=== PATIENT | female | born 1965 | race Caucasian/White ===

== ENCOUNTER 2022-11-09 15:14 | Inpatient (IN) ==
[2022-11-09] MEDS ORDERED: diphenhydrAMINE 50 MG/ML VIAL IV STA (15:23)
[2022-11-09] MEDS ORDERED: ALBUT/IPRATROP 3MG/0.5MG NEB 3 ML VIAL NEB STA ×3 (15:23→16:35)
[2022-11-09] MEDS ORDERED: LORazepam 2 MG/1 ML VIAL IV STA (15:23)
[2022-11-09] MEDS ORDERED: methylPREDNISolone 125 MG/2 ML VIAL IV STA (15:23)
[2022-11-09] MEDS ORDERED: ALBUT/IPRATROP 3MG/0.5MG NEB 3 ML VIAL ONE (15:25)
[2022-11-09 16:09] LABS: HCO3 VBG 29 mmol/L; Oxygen Saturation VBG < 60.0 %; PCO2 VBG 45 mmHg (38-50); PO2 VBG 26 mmHg; pH VBG 7.42 (7.36-7.41)
--- NOTE | 2022-11-09 16:17 | Electrocardiogram Report ---
Test Reason : Blood Pressure : / mmHG Vent. Rate : 100 BPM Atrial Rate : 100 BPM P-R Int : 170 ms QRS Dur : 090 ms QT Int : 366 ms P-R-T Axes : 030 024 029 degrees QTc Int : 472 ms Normal sinus rhythm Normal ECG When compared with ECG of 22-NOV-2005 22:27, OH interval has decreased Confirmed by Soham Teague ([id number]) on 11/09/2022 4:17:12 PM Referred By: Confirmed By:Soham Teague
[2022-11-09 16:18] LABS: Basophils # (auto) 0.05 K/uL (0-0.2); Basophils % (auto) 0.4 %; Eosinophils # (auto) 0.08 K/uL (0-0.50); Eosinophils % (auto) 0.6 %; Hematocrit (blood only) 45.5 % (37.0-47.0); Hemoglobin 15.5 g/dl (12.0-16.0); Immature Granulocytes # (auto) 0.03 K/uL (0.01-0.20); Immature Granulocytes % (auto) 0.2 %; Lymphocytes # (auto) 3.01 K/uL (1.2-3.4); Lymphocytes % (auto) 23.5 %; Mean Corpuscular Hemoglobin 31.3 pg (25.0-34.0); Mean Corpuscular Hgb Conc 34.1 g/dL (32.0-36.0); Mean Corpuscular Volume 91.7 fL (80.0-100.0); Mean Platelet Volume 8.9 fL (9.4-12.4); Monocytes # (auto) 0.73 K/uL (0.11-0.59); Monocytes % (auto) 5.7 %; Neutrophils # (auto) 8.92 K/uL (1.40-6.50); Neutrophils % (auto) 69.6 %; Platelet Count 366 K/uL (130-400); RDW Coefficient of Variation 12.7 % (11.5-14.5); RDW Standard Deviation 42.6 fL (36.4-46.3); Red Blood Count 4.96 M/uL (4.20-5.40); White Blood Count 12.82 K/ul (4.8-10.8)
[2022-11-09 16:21] LABS: Anion Gap 8 (3-11); BUN Creatinine Ratio 16.1 (10-20); Blood Urea Nitrogen 10 mg/dl (6-23); Calcium 9.6 mg/dl (8.6-10.3); Carbon Dioxide 25 mmol/L (21-32); Chloride 106 mmol/L (98-107); Est GFR (African American) 116.8 ml/min; Est GFR (Non-African American) 100.8 ml/min; Glucose 99 mg/dl (70-99(Fasting)); Potassium 3.6 mmol/L (3.5-5.1); Sodium 139 mmol/L (136-145)
[2022-11-09 16:29] LABS: Troponin I High Sensitivity 6.3 pg/ml (0-14)
[2022-11-09 16:38] LABS: D Dimer 330 ug/L FEU (0-500); Partial Thromboplastin Ratio 0.9; Partial Thromboplastin Time 26.2 Seconds (21.0-31.0); Prothrombin Time 10.6 Seconds (9.0-12.0)
[2022-11-09 16:46] LABS: Influenza A virus by PCR Negative (Neg); Influenza B virus by PCR Negative (Neg); RSV by PCR Negative (Neg); SARS CoV2 RNA(COVID-19) Ceph NEGATIVE (Negative)
--- NOTE | 2022-11-09 16:46 | XRay Report ---
XR chest 1V portable HISTORY: Shortness of breath. COMPARISON: Chest 11/22/2005. FINDINGS: There are low lung volumes. The cardiac silhouette is borderline enlarged. This remains unc hanged. No evidence for pulmonary edema. No pleural effusions. No pneumothorax. There are faint patch y bibasilar densities. The upper lung zones remain clear. IMPRESSION: There are low lung volumes with patchy bibasilar densities. This is nonspecific and could represent a telectasis or a pneumonia. ACT 112: Negative or not required by law. Electronically signed by: Fabian Hunt M.D. 11/09/2022 4:45 PM
--- NOTE | 2022-11-09 17:22 | History & Physical Report ---
Date of Service November 09, 2022 Assessment & Plan (1) Dysphagia: Plan: Dysphagia,? Odontogenic infection -Patient reports she had lower molar extractions on the and of this month, was prescribed amoxicillin which she completed a 10-day course of earlier in the month, but on reassessment the was prescribed additional antibiotics which she has not taken. Notes over the last 2 days she has had right jaw and neck tenderness and swelling, and has had difficulty swallowing over the last 2 days Dental extraction sites appear well-healed with no obvious purulence or discharge or erythema on exam. Does have right-sided fullness underlying the mandible and neck on exam. -Has felt feverish with severe chills for last 2 nights. Mild leukocytosis of 12.82 on admission -EKG: NSR, QTc 472, rate 100. No territorial ST segment changes or T wave inversions -VB.42/45/26/29 -No electrolyte derangement. Creatinine is with normal baseline and 0.62 on admission. COVID/flu/RSV negative on admission. High-sensitivity troponin is normal -CXR: Low volume with patchy bibasilar densities, nonspecific. Atelectasis versus pneumonia CTsoft tissue neck:1. There is evidence of a right mandibular molar extraction. Overlying soft tissue edema may represent expected postoperative change. Correlate clinically. 2. No organized fluid collection is seen to suggest abscess.3. The pharyngeal soft tissues are normal as imaged noting intraluminal secretions.4. Additional findings as above. Empirically continued on Unasyn at time of admission N.p.o. swallow eval. Maintenance IV FM while these are pending ?allergic reaction Patient initially presented concerned for difficulty swallowing/breathing due to an insect bite of her left lower extremity last night. She notes that this was over 12 hours ago, does not have any swelling or pain at the insect bite. Did not have any urticaria. No angioedema is noted at time of assessment Patient did complete a course of amoxicillin earlier in the month, and reports she takes medications rarely but is not allergic to penicillin as far as she knows and has gotten this before without reactions Patient does have severe seasonal allergies and gets watery eyes and itching with pollen. Cetirizine 10 mg twice daily continued, can transition to daily on D/C if doing well Patient received methylprednisolone and diphenhydramine while in ER, methylprednisolone is continued Low suspicion for penicillin allergy, and no hives/cutaneous symptoms are present. We will continue to follow, epinephrine is on-call if patient shows symptoms of anaphylaxis Acute hypoxic respiratory failure, suspected acute COPD - w/ emphysema noted on CT Patient reportedly with wheezing on admission and a long history of tobacco use. No PFTs available for review. No home inhalers Wheezing improved following steroids and nebs while in the ER We will continue methylprednisolone 40 mg twice daily. Recommend outpatient PFTs once at respiratory baseline. Abx covered by unasyn No home oxygen requirement, currently with adequate O2 sat on 2 L. Titrate to goal O2 of greater than 89% Magnesium pending DVT prophylaxis: Lovenox Diet: N.p.o. pending improvement in dysphagia. IV FM Disposition: PCU for airway/allergic rxn monitoring. Downgrade if stable through morning CODE STATUS: Full code (2) Wheezing: (3) Tobacco use: (4) H/O tooth extraction: History of Present Illness Primary Care Provider: NO PCP Flory is a 57-year-old female with a history of COPD who presents for a COPD exacerbation. Initially she was concerned about an anaphylactic reaction after getting stung by a bee last night, did not notice any shortness of breath until this morning. On ER evaluation she is noted to have increased wheezing in the setting of ongoing tobacco use. Initially due to concerns for potential allergic reaction did receive methylprednisolone, diphenhydramine however on reassessment was suspected to have COPD and therefore was continued on albuterol treatments with clinical improvement Pt is seen at the bedside while in the ER. She reports that initially she is concerned about a bee sting, she notes that she got an insect bite or sting on her left lower leg last night. She reports this morning she woke up and was having increased difficulty swallowing even water and some wheezing. She reports she feels like she has had difficulty breathing. She recently had dental work performed in [place], reports that she had teeth pulled by dr. lennox mabry on the and . Prescribed amoxicillin post procedurally and completed around 10 days of this earlier in the month, but was prescribed additional antibiotics on reassessment on the which she has not taken in addition to her difficulty breathing she has had 2 days of shaking chills fatigue and dizziness. R neck has felt more swollen, and she reports she has not been able to swallow well x2 days. Reports the chills have been particularly bad and has had to have multiple blankets on her at night and is still cold. She reports she does not have a history of COPD, but does not follow with a PCP and has been a longtime smoker. She denies medication allergies. She denies prior anaphylaxis. She denies prior surgeries other than her dental extraction. EKG: NSR, QTc 472, rate 100. No territorial ST segment changes or T wave inversions Leukocytosis of 12.82 without immature granulocyte increase VB.4 / No electrolyte derangement. Creatinine is with normal baseline and 0.62 on admission. COVID/flu/RSV negative on admission. High-sensitivity troponin is normal CXR: Low volume with patchy bibasilar densities, nonspecific. Atelectasis versus pneumonia Medical History: Reviewed Medications: Reviewed Surgical History: Reviewed Family history: Reviewed Allergies: Reviewed Social History: Current tobacco use. Denies alcohol and substance Code Status: Full code Allergies Allergy/AdvReac Type Severity Reaction Status Date / Time No Known Allergies Allergy Verified 07/26/02 14:51 Home Medications Medication Instructions Recorded Confirmed Type amoxicillin 500 mg capsule 500 mg PO TID 11/09/22 11/09/22 History Past Med/Surg History Medical History COPD (chronic obstructive pulmonary disease) No pertinent family history Tobacco use Surgical History (Updated 11/09/22 @ 17:38 by Epi Roberts MD) H/O tooth extraction Social History Smoking Status: Current every day smoker Feels Safe at Home: Yes Review of Systems Review of Systems: All systems reviewed & are unremarkable except as noted in HPI & below Physical Exam Physical Exam: General: A&Ox3. NAD. Cooperative. HEENT: Atraumatic, normocephalic. Vision/hearing grossly intact. Mallampati 34 with difficult uvular visualization, using tongue depressor uvula is midline at time of assessment. No angioedema of the lips/tongue. Right and left extracted molars with gums well-healed overlying without erythema/purulent discharge. Patient is tender underlying the right mandible and right anterior neck with mild swelling compared to the left Pulm: Diminished but grossly clear and without any wheezing at time of hospitalist assessment symmetrical chest rise. No increased work of breathing. No respiratory distress. Cardiac: Regular, tachycardic, -mrg. Radial pulses intact and symmetrical. Abdominal: Nontender, nondistended, soft. BS present. Extremities: Warm, dry. 1 cm round area of slight erythema at site of insect bite on left lateral lower extremity, no spreading erythema. No tenderness/itching of lower extremities. No urticaria of the upper or lower extremities is noted. Sensation and strength of the upper and lower extremities is grossly intact Results & Data Results & Data Vital Signs (Past 12 Hours) Vital Signs Temp Pulse Pulse Resp BP BP Pulse Ox 11/09/22 16:28 93 H 17 161/82 H 94 11/09/22 16:27 94 H 87 L 11/09/22 15:43 98 H 11/09/22 15:39 95 H 22 94 11/09/22 15:38 95 H 22 118/92 93 11/09/22 15:16 36.5 C 111 H 28 H 150/110 H 94 O2 Del Method O2 Flow Rate 11/09/22 16:28 Nasal Cannula 2 11/09/22 16:27 Room Air 11/09/22 15:43 11/09/22 15:39 Nasal Cannula 2 11/09/22 15:38 Room Air 11/09/22 15:16 Room Air PG Care Time/CCT Total # of Minutes Spent Total Time Spent with Patient: Total time spent is greater than 50% in coordination of care (as documented) at patient's floor/unit and/or counseling patient: Coding Level of Care Code 03657 INT INP/OBS CARE 3/75MIN Diagnoses Dysphagia R13.10 Wheezing R06.2 Tobacco use Z72.0 H/O tooth extraction K08.409
[2022-11-09] MEDS ORDERED: OPTIRAY 320 100ml IV ONE (18:07)
--- NOTE | 2022-11-09 18:59 | CT Scan Report ---
CT SCAN OF THE NECK WITH IV CONTRAST CLINICAL HISTORY: Neck pain and swelling following a dental extraction. COMPARISON STUDY: No priors. TECHNIQUE: Following the IV administration of 78 cc of Optiray 320, CT scan of the soft tissues of th e neck was performed from the skull base to the upper chest. Images are reviewed in the axial, sagitt al, and coronal planes. IV contrast was administered without complication. A dose lowering techniqu e was utilized adhering to the principles of ALARA. FINDINGS: Dentition and soft tissues. There is evidence of a right maxillary molar extraction. Overlying soft t issue edema is noted. No fluid collection is seen to suggest abscess. There is a small periapical laura ency involving the left central incisor of the maxilla seen on axial image #93. Pharynx: Secretions are noted in the pharynx. The pharyngeal soft tissues are otherwise normal as hiwot ged. The pharyngeal airway is widely patent. There is no evidence of mass lesion. The vocal cords are symmetric. The parapharyngeal fat is well maintained. The prevertebral/retropharyngeal soft tissues are within normal limits. Lymphadenopathy: No cervical lymphadenopathy is seen Thyroid: Normal in size and attenuation. Salivary glands: The parotid and submandibular glands are within normal limits. Brain parenchyma: The visualized brain parenchyma at the skull base is normal in appearance. Vascular structures: The carotid arteries and jugular veins are patent bilaterally. Skeletal structures: Imaged portions of the calvarium at the skull base are within normal limits. The cervical spine appears intact. Ligaments: The bony orbits are intact. Orbital contents are normal as visualized. Sinuses and mastoids: There is trace mucosal thickening within the maxillary antra in the right front al sinus. The remaining paranasal sinuses are clear. The mastoid air cells are well pneumatized. Lung apices: Mild emphysematous change is seen at the apices. Upper lobe lung parenchyma is otherwise clear as imaged. IMPRESSION: 1. There is evidence of a right mandibular molar extraction. Overlying soft tissue edema may represen t expected postoperative change. Correlate clinically. 2. No organized fluid collection is seen to suggest abscess. 3. The pharyngeal soft tissues are normal as imaged noting intraluminal secretions. 4. Additional findings as above. ACT 112: Negative or not required by law. Electronically signed by: Derick Serrano M.D. 11/09/2022 6:58 PM
--- NOTE | 2022-11-09 19:04 | Emergency Department Note ---
History of Present Illness General Chief Complaint: Allergic Reaction Stated Complaint: TROUBLE BREATHING,CANT SWALLOW Time Seen by Provider: 11/09/22 15:23 History of Present Illness Provider Complaint: shortness of breath Onset (ago): day(s) (1) Severity: moderate Consistency/Duration: + progressively worsening Relieved By: + nothing Exacerbated By: + exertion and + coughing Known history of: COPD Associated symptoms: + cough, + wheezing and + chest congestion; no chest pain, no pain with inspiration, no fever, no sputum production, no hemoptysis or no abdominal pain HPI Narrative: Patient does report that she was stung by a bee last night but did not start having symptoms until today. Related Data Home oxygen amount: none Home Medications Medication Instructions Recorded Confirmed Type amoxicillin 500 mg capsule 500 mg PO TID 11/09/22 11/09/22 History Allergies Allergy/AdvReac Type Severity Reaction Status Date / Time No Known Allergies Allergy Verified 07/26/02 14:51 Past Med/Surg History Medical History COPD (chronic obstructive pulmonary disease) No pertinent family history Tobacco use Surgical History H/O tooth extraction Social History Smoking Status: Current every day smoker Feels Safe at Home: Yes Physical Exam Vital Signs: Vital Signs - 24 hr 11/09/22 15:16 11/09/22 15:38 11/09/22 15:39 Temperature 36.5 C Temperature Source Temporal Artery Sc an Pulse Rate 111 H Pulse Rate [Apical ] 95 H Pulse Rhythm Respiratory Rate 28 H 22 Respiratory Effort / Characteristics Labored Blood Pressure 150/110 H Blood Pressure [Ri ght Arm] 118/92 Blood Pressure Caity n 123 Blood Pressure Caity n [Right Arm] 100 Pulse Oximetry 94 93 Oxygen Delivery Me thod Room Air Room Air Oxygen Flow Rate Sepsis Recent Feve r Within 48 Hours No Sepsis New/Unexpla ined Change in Men michelle Status No Sepsis Action Take n by Nursing Physician Notified 11/09/22 15:39 11/09/22 15:43 11/09/22 16:27 Temperature Temperature Source Pulse Rate 95 H 98 H Pulse Rate [Apical ] 94 H Pulse Rhythm Regular Respiratory Rate 22 Respiratory Effort / Characteristics Blood Pressure Blood Pressure [Ri ght Arm] Blood Pressure Caity n Blood Pressure Caity n [Right Arm] Pulse Oximetry 94 87 L Oxygen Delivery Me thod Nasal Cannula Room Air Oxygen Flow Rate 2 Sepsis Recent Feve r Within 48 Hours Sepsis New/Unexpla ined Change in Men michelle Status Sepsis Action Take n by Nursing 11/09/22 16:28 11/09/22 18:34 Temperature Temperature Source Pulse Rate Pulse Rate [Apical ] 93 H 108 H Pulse Rhythm Respiratory Rate 17 22 Respiratory Effort / Characteristics Blood Pressure Blood Pressure [Ri ght Arm] 161/82 H 170/94 H Blood Pressure Caity n Blood Pressure Caity n [Right Arm] 108 119 Pulse Oximetry 94 96 Oxygen Delivery Me thod Nasal Cannula Nasal Cannula Oxygen Flow Rate 2 4 Sepsis Recent Feve r Within 48 Hours Sepsis New/Unexpla ined Change in Men michelle Status Sepsis Action Take n by Nursing Physical Exam: Physical Exam GENERAL: oriented to person, place, and time. appears well-developed and well- nourished. HENT: Exam performed. - Head: Normocephalic and atraumatic. EYES: Conjunctivae and EOM are normal. Right eye exhibits no discharge. Left eye exhibits no discharge. No scleral icterus. NECK: Normal range of motion. Neck supple. No JVD present. CV: Normal rate, regular rhythm, normal heart sounds and intact distal pulses. There is no peripheral edema. Palpable radial pulses bue. PULM/CHEST: Expiratory wheezes bilaterally. No stridor. ABD: The abdomen is soft. There is no tenderness. NEURO: Motor and sensation grossly intact. SKIN: Skin is warm and dry. He is not diaphoretic. PSYCH: normal mood and affect. Behavior is normal. Judgment and thought content normal. Course Course 1523: The patient was evaluated in room A4A. A complete history and physical exam was performed Cardiac monitoring: An order was placed for continuous cardiac monitoring. The monitor shows a rate of 100 with sinus rhythm interpreted by me Patient was stung by bee yesterday, it is not thought that the patient is having anaphylactic reaction as the patient is having no stridor no rash and her symptoms began today while the insect bite was yesterday. 1630: Patient became hypoxic status post 1 DuoNeb. Supplemental oxygen was applied via nasal cannula which improved the patient's oxygen saturation. 1700: Vital signs stable on supplemental oxygen via nasal cannula. Labs are within normal limits including negative troponin D-dimer and VBG. Chest x-ray negative. Patient will be admitted to the [facility] team for COPD exacerbation and hypoxia. Dr. Burton will be notified. Administered Medications Discontinued Medications Albuterol (Albut/Ipratrop 3mg/0.5mg Neb 3 Ml Vial) 3 ml NEB NOW STA; Protocol Stop: 11/09/22 15:24 Last Admin: 11/09/22 15:29 Dose: 3 ml Documented By: Albuterol (Albut/Ipratrop 3mg/0.5mg Neb 3 Ml Vial) Confirm Administered Dose 3 ml .ROUTE .STK-MED ONE Stop: 11/09/22 15:26 Last Admin: 11/09/22 15:30 Dose: 3 ml Documented By: Albuterol (Albut/Ipratrop 3mg/0.5mg Neb 3 Ml Vial) 3 ml NEB NOW STA; Protocol Stop: 11/09/22 16:34 Last Admin: 11/09/22 16:40 Dose: 3 ml Documented By: Albuterol (Albut/Ipratrop 3mg/0.5mg Neb 3 Ml Vial) 3 ml NEB NOW STA; Protocol Stop: 11/09/22 16:36 Last Admin: 11/09/22 16:40 Dose: 3 ml Documented By: Diphenhydramine HCl (Diphenhydramine 50 Mg/Ml Vial) 25 mg IV NOW STA Stop: 11/09/22 15:24 Last Admin: 11/09/22 15:30 Dose: 25 mg Documented By: Ioversol (Optiray 320 100ml) 78 ml IV ONCE ONE Stop: 11/09/22 18:08 Last Admin: 11/09/22 18:07 Dose: 78 ml Documented By: JOCE Lorazepam (Lorazepam 2 Mg/1 Ml Vial) 1 mg IV NOW STA Stop: 11/09/22 15:24 Last Admin: 11/09/22 15:30 Dose: 1 mg Documented By: Methylprednisolone (Methylprednisolone 125 Mg/2 Ml Vial) 125 mg IV NOW STA Stop: 11/09/22 15:24 Last Admin: 11/09/22 15:30 Dose: 125 mg Documented By: Medical Decision Making Laboratory Data Attestation: I reviewed the patient's lab results. 11/09/22 15:30 11/09/22 15:30 Lab Results 11/09/22 11/09/22 11/09/22 Range/Units 15:30 15:30 15:30 WBC 12.82 H (4.8-10.8) K/ul RBC 4.96 (4.20-5.40) M/uL Hgb 15.5 (12.0-16.0) g/dl Hct 45.5 (37.0-47.0) % MCV 91.7 (80.0-100.0) fL MCH 31.3 (25.0-34.0) pg MCHC 34.1 (32.0-36.0) g/dL RDW Std Deviation 42.6 (36.4-46.3) fL RDW Coeff of Bashir 12.7 (11.5-14.5) % Plt Count 366 (130-400) K/uL MPV 8.9 L (9.4-12.4) fL Immature Gran % (Auto) 0.2 % Neut % (Auto) 69.6 % Lymph % (Auto) 23.5 % Cameron % (Auto) 5.7 % Eos % (Auto) 0.6 % Baso % (Auto) 0.4 % Neut # (Auto) 8.92 H (1.40-6.50) K/uL Lymph # (Auto) 3.01 (1.2-3.4) K/uL Cameron # (Auto) 0.73 H (0.11-0.59) K/uL Eos # (Auto) 0.08 (0-0.50) K/uL Baso # (Auto) 0.05 (0-0.2) K/uL Immature Gran # (Auto) 0.03 (0.01-0.20) K/uL PT 10.6 (9.0-12.0) Seconds INR 1.0 (0.9-1.1) APTT 26.2 (21.0-31.0) Seconds PTT Ratio 0.9 D-Dimer 330 (0-500) ug/L FEU VBG pH (7.36-7.41) VBG pCO2 (38-50) mmHg VBG pO2 mmHg VBG HCO3 mmol/L VBG O2 Saturation % VBG Base Excess mEq/L Sodium 139 (136-145) mmol/L Potassium 3.6 (3.5-5.1) mmol/L Chloride 106 (98-107) mmol/L Carbon Dioxide 25 (21-32) mmol/L Anion Gap 8 (3-11) BUN 10 (6-23) mg/dl Creatinine 0.62 (0.6-1.2) mg/dl Est Cr Clr Drug Dosing Not Reportable Est GFR ( Amer) 116.8 ml/min Est GFR (Non-Af Amer) 100.8 ml/min BUN/Creatinine Ratio 16.1 (10-20) Glucose 99 (70-99(Fasting)) mg/dl Calcium 9.6 (8.6-10.3) mg/dl Troponin I High Sens 6.3 (0-14) pg/ml SARS-CoV-2 (PCR) (Negative) Influenza Type A (PCR) (Neg) Influenza Type B (PCR) (Neg) RSV (RT-PCR) (Neg) 11/09/22 11/09/22 Range/Units 15:50 15:56 WBC (4.8-10.8) K/ul RBC (4.20-5.40) M/uL Hgb (12.0-16.0) g/dl Hct (37.0-47.0) % MCV (80.0-100.0) fL MCH (25.0-34.0) pg MCHC (32.0-36.0) g/dL RDW Std Deviation (36.4-46.3) fL RDW Coeff of Bashir (11.5-14.5) % Plt Count (130-400) K/uL MPV (9.4-12.4) fL Immature Gran % (Auto) % Neut % (Auto) % Lymph % (Auto) % Cameron % (Auto) % Eos % (Auto) % Baso % (Auto) % Neut # (Auto) (1.40-6.50) K/uL Lymph # (Auto) (1.2-3.4) K/uL Cameron # (Auto) (0.11-0.59) K/uL Eos # (Auto) (0-0.50) K/uL Baso # (Auto) (0-0.2) K/uL Immature Gran # (Auto) (0.01-0.20) K/uL PT (9.0-12.0) Seconds INR (0.9-1.1) APTT (21.0-31.0) Seconds PTT Ratio D-Dimer (0-500) ug/L FEU VBG pH 7.42 H (7.36-7.41) VBG pCO2 45 (38-50) mmHg VBG pO2 26 mmHg VBG HCO3 29 mmol/L VBG O2 Saturation < 60.0 % VBG Base Excess 4.0 mEq/L Sodium (136-145) mmol/L Potassium (3.5-5.1) mmol/L Chloride (98-107) mmol/L Carbon Dioxide (21-32) mmol/L Anion Gap (3-11) BUN (6-23) mg/dl Creatinine (0.6-1.2) mg/dl Est Cr Clr Drug Dosing Est GFR ( Amer) ml/min Est GFR (Non-Af Amer) ml/min BUN/Creatinine Ratio (10-20) Glucose (70-99(Fasting)) mg/dl Calcium (8.6-10.3) mg/dl Troponin I High Sens (0-14) pg/ml SARS-CoV-2 (PCR) NEGATIVE (Negative) Influenza Type A (PCR) Negative (Neg) Influenza Type B (PCR) Negative (Neg) RSV (RT-PCR) Negative (Neg) Imaging Data Attestation: I personally reviewed and interpreted this imaging study as follows: My Impression: Chest x-ray negative. Airway clear. No pneumothorax. No consolidation. No cardiomegaly or cephalization.. No free air under the diaphragm. No fractures of the skeletal structures. Radiologist's Impression: XR chest 1V portable HISTORY: Shortness of breath. COMPARISON: Chest 11/22/2005. FINDINGS: There are low lung volumes. The cardiac silhouette is borderline enlarged. This remains unchanged. No evidence for pulmonary edema. No pleural effusions. No pneumothorax. There are faint patchy bibasilar densities. The upper lung zones remain clear. IMPRESSION: There are low lung volumes with patchy bibasilar densities. This is nonspecific and could represent atelectasis or a pneumonia. ACT 112: Negative or not required by law. Electronically signed by: Fabian Hunt M.D. 11/09/2022 4:45 PM Dictated:[id number] Transcribed: 05/30/23 1643 ECG Data Attestation: I personally reviewed and interpreted this ECG as follows: Interpretation: Sinus rhythm with a rate of 100. GA QRS and QTc intervals within normal limits. No ST elevation or ST depression. [facility] Narrative 1523: The patient was evaluated in room A4A. A complete history and physical exam was performed Cardiac monitoring: An order was placed for continuous cardiac monitoring. The monitor shows a rate of 100 with sinus rhythm interpreted by me Patient was stung by bee yesterday, it is not thought that the patient is having anaphylactic reaction as the patient is having no stridor no rash and her symptoms began today while the insect bite was yesterday. 1630: Patient became hypoxic status post 1 DuoNeb. Supplemental oxygen was applied via nasal cannula which improved the patient's oxygen saturation. 1700: Vital signs stable on supplemental oxygen via nasal cannula. Labs are within normal limits including negative troponin D-dimer and VBG. Chest x-ray negative. Patient will be admitted to the [place] [facility] team for COPD exacerbation and hypoxia. Dr. Burton will be notified. Impression & Plan Hypoxia, COPD (chronic obstructive pulmonary disease) Critical Care Time Critical Care Time: Yes Total Critical Care Time: 56 I have personally spent greater than 56 minutes of critical care time in the direct management of this patient. This includes bedside care, interpretation of diagnostic studies, and testing, discussion with consultants, patient, and family members, and other required patient management activities. This 56 minutes is in excess of all separately billable procedures. Discharge Plan Visit Data Chief Complaint: Allergic Reaction Stated Complaint: TROUBLE BREATHING,CANT SWALLOW ED Provider: Vasyl Mejia Discharge Problem: Hypoxia, COPD (chronic obstructive pulmonary disease) Patient Disposition: Admitted As Inpatient Forms Stand Alone Forms: My [facility] Prescriptions Prescriptions: No Action amoxicillin 500 mg capsule 500 mg PO TID Rx Instructions: take for 10 days ordered 11/02/22 Referrals Referrals: PCP,NO [Primary Care Provider] -
[2022-11-09] MEDS ORDERED: EPINEPHrine INJ 1 MG/ML AMP IM PRN (20:37)
[2022-11-09] MEDS ORDERED: CETIRIZINE HCL 10 MG TABLET PO ONE (20:37)
[2022-11-09] MEDS ORDERED: diphenhydrAMINE 50 MG/ML VIAL IV PRN (20:37)
[2022-11-09] MEDS: AMPICILLIN/SULBACTAM SOD 3,000 MG in 0.9 % SODIUM CHLORIDE 100 ML IV SCH (21:19)
[2022-11-09] MEDS: PLASMA-LYTE A 1,000 ML IV SCH (21:19)
[2022-11-09] MEDS: CETIRIZINE HCL 10 MG TABLET PO SCH (21:36)
[2022-11-10] MEDS: AMPICILLIN/SULBACTAM SOD 3,000 MG in 0.9 % SODIUM CHLORIDE 100 ML IV SCH ×3 (02:43→15:02)
[2022-11-10 07:32] LABS: Basophils # (auto) 0.01 K/uL (0-0.2); Basophils % (auto) 0.1 %; Hematocrit (blood only) 40.5 % (37.0-47.0); Immature Granulocytes # (auto) 0.05 K/uL (0.01-0.20); Immature Granulocytes % (auto) 0.4 %; Lymphocytes # (auto) 1.79 K/uL (1.2-3.4); Lymphocytes % (auto) 13.4 %; Mean Corpuscular Hemoglobin 31.3 pg (25.0-34.0); Mean Corpuscular Hgb Conc 34.6 g/dL (32.0-36.0); Mean Corpuscular Volume 90.6 fL (80.0-100.0); Mean Platelet Volume 8.7 fL (9.4-12.4); Monocytes # (auto) 0.73 K/uL (0.11-0.59); Monocytes % (auto) 5.5 %; Neutrophils # (auto) 10.78 K/uL (1.40-6.50); Neutrophils % (auto) 80.6 %; Platelet Count 297 K/uL (130-400); RDW Coefficient of Variation 12.9 % (11.5-14.5); RDW Standard Deviation 42.5 fL (36.4-46.3); Red Blood Count 4.47 M/uL (4.20-5.40); White Blood Count 13.36 K/ul (4.8-10.8)
[2022-11-10 07:48] LABS: Calcium 9.4 mg/dl (8.6-10.3); Magnesium 2.1 mg/dl (1.7-2.4); Potassium 4.3 mmol/L (3.5-5.1)
[2022-11-10 07:53] LABS: BUN Creatinine Ratio 21.3 (10-20); Creatinine Clr Calc Pharmacy 122.4 ml/min; Est GFR (African American) 117.5 ml/min; Est GFR (Non-African American) 101.3 ml/min
[2022-11-10] MEDS: CETIRIZINE HCL 10 MG TABLET PO SCH (08:28)
[2022-11-10] MEDS ORDERED: methylPREDNISolone 40 MG in SYRINGE 0 ML IV SCH (09:00)
[2022-11-10] MEDS: PLASMA-LYTE A 1,000 ML IV SCH (10:49)
--- NOTE | 2022-11-10 18:15 | Discharge Summary ---
Discharge Summary Date of Service November 10, 2022 Notes For Next Care Provider Ailyn IV in hospital changed to Amoxicillin 500 mg potid x 10 days Medication Changes From Visit as above Admission HPI Per Admitting Provider Flory is a 57-year-old female with a history of COPD who presents for a COPD exacerbation. Initially she was concerned about an anaphylactic reaction after getting stung by a bee last night, did not notice any shortness of breath until this morning. On ER evaluation she is noted to have increased wheezing in the setting of ongoing tobacco use. Initially due to concerns for potential allergic reaction did receive methylprednisolone, diphenhydramine however on reassessment was suspected to have COPD and therefore was continued on albuterol treatments with clinical improvement Pt is seen at the bedside while in the ER. She reports that initially she is concerned about a bee sting, she notes that she got an insect bite or sting on her left lower leg last night. She reports this morning she woke up and was having increased difficulty swallowing even water and some wheezing. She reports she feels like she has had difficulty breathing. She recently had dental work performed in [place], reports that she had teeth pulled by dr. lennox mabry on the and . Prescribed amoxicillin post procedurally and completed around 10 days of this earlier in the month, but was prescribed additional antibiotics on reassessment on the which she has not taken in addition to her difficulty breathing she has had 2 days of shaking chills fatigue and dizziness. R neck has felt more swollen, and she reports she has not been able to swallow well x2 days. Reports the chills have been particularly bad and has had to have multiple blankets on her at night and is still cold. She reports she does not have a history of COPD, but does not follow with a PCP and has been a longtime smoker. She denies medication allergies. She denies prior anaphylaxis. She denies prior surgeries other than her dental extraction. EKG: NSR, QTc 472, rate 100. No territorial ST segment changes or T wave inversions Leukocytosis of 12.82 without immature granulocyte increase VB.4 / No electrolyte derangement. Creatinine is with normal baseline and 0.62 on admission. COVID/flu/RSV negative on admission. High-sensitivity troponin is normal CXR: Low volume with patchy bibasilar densities, nonspecific. Atelectasis versus pneumonia Medical History: Reviewed Medications: Reviewed Surgical History: Reviewed Family history: Reviewed Allergies: Reviewed Social History: Current tobacco use. Denies alcohol and substance Code Status: Full code Principal Dx & Hospital Course #1 = Principal Diagnosis (1) Dysphagia: Dysphagia,? Odontogenic infection -Patient reports she had lower molar extractions on the and of this month, was prescribed amoxicillin which she completed a 10-day course of earlier in the month, but on reassessment the was prescribed additional antibiotics which she has not taken. Notes over the last 2 days she has had right jaw and neck tenderness and swelling, and has had difficulty swallowing over the last 2 days Dental extraction sites appear well-healed with no obvious purulence or discharge or erythema on exam. Does have right-sided fullness underlying the mandible and neck on exam. -Has felt feverish with severe chills for last 2 nights. Mild leukocytosis of 12.82 on admission -EKG: NSR, QTc 472, rate 100. No territorial ST segment changes or T wave inversions -VB.42/45/26/29 -No electrolyte derangement. Creatinine is with normal baseline and 0.62 on admission. COVID/flu/RSV negative on admission. High-sensitivity troponin is normal -CXR: Low volume with patchy bibasilar densities, nonspecific. Atelectasis versus pneumonia CTsoft tissue neck:1. There is evidence of a right mandibular molar extraction. Overlying soft tissue edema may represent expected postoperative change. Correlate clinically. 2. No organized fluid collection is seen to suggest abscess.3. The pharyngeal soft tissues are normal as imaged noting intraluminal secretions.4. Additional findings as above. Empirically continued on Unasyn at time of admission N.p.o. swallow eval. Maintenance IV FM while these are pending ?allergic reaction Patient initially presented concerned for difficulty swallowing/breathing due to an insect bite of her left lower extremity last night. She notes that this was over 12 hours ago, does not have any swelling or pain at the insect bite. Did not have any urticaria. No angioedema is noted at time of assessment Patient did complete a course of amoxicillin earlier in the month, and reports she takes medications rarely but is not allergic to penicillin as far as she knows and has gotten this before without reactions Patient does have severe seasonal allergies and gets watery eyes and itching with pollen. Cetirizine 10 mg twice daily continued, can transition to daily on D/C if doing well Patient received methylprednisolone and diphenhydramine while in ER, methylprednisolone is continued Low suspicion for penicillin allergy, and no hives/cutaneous symptoms are present. We will continue to follow, epinephrine is on-call if patient shows symptoms of anaphylaxis Acute hypoxic respiratory failure, suspected acute COPD - w/ emphysema noted on CT Patient reportedly with wheezing on admission and a long history of tobacco use. No PFTs available for review. No home inhalers Wheezing improved following steroids and nebs while in the ER We will continue methylprednisolone 40 mg twice daily. Recommend outpatient PFTs once at respiratory baseline. Abx covered by unasyn No home oxygen requirement, currently with adequate O2 sat on 2 L. Titrate to goal O2 of greater than 89% Magnesium pending DVT prophylaxis: Lovenox Diet: N.p.o. pending improvement in dysphagia. IV FM Disposition: PCU for airway/allergic rxn monitoring. Downgrade if stable through morning CODE STATUS: Full code (2) Wheezing: (3) Tobacco use: (4) H/O tooth extraction: Updated Medication List Medication Instructions Recorded Confirmed Type amoxicillin 500 mg capsule 500 mg PO TID 11/09/22 11/09/22 History Hospital Stay Data Consultations 11/09/22 16:56 ED Decision to Admit Stat Diagnostic Imagining Performed 11/09/22 17:33 CT neck soft tissues [CT soft tissue neck w con] Stat Pending Results Patient Have Any Pending Studies at Discharge: No Discharge Instructions Given to Patient (Per Discharging Provider) followup with Dentist Home Health Attestation I certify that this patient is under my care and that I, or a physicians email marketing assistant working with me, had a face to-face encounter that meets the home health [id number] encounter requirements with this patient. The encounter with the patient was in whole, or in part, for the following medical condition, which is the primary reason for home health care (list medical condition): I certify that, based on my findings, the following services are medically necessary home health services: My clinical findings support the need for the above services because: Further, I certify that my clinical findings support that this patient is homebound (i.e. absences from home require considerable and taxing effort and are for medical reasons or anglican services or infrequently or of short duration when for other reasons) because: Certification for Home Health Services: Based on the above findings, I certify that this patient is confined to the home and needs intermittent correction care, physical therapy and/or speech therapy or continues to need occupational therapy. The patient is under my care, and I have initiated the establishment of the plan of care. This patient will be followed by a physician who will periodically review the plan of care. Total Time Total Time Spent Total Time Spent (In Minutes): 42 Coding Level of Care Code 67627 INP/OBS DISCH >30 MIN Diagnoses Dysphagia R13.10 Wheezing R06.2 Tobacco use Z72.0 H/O tooth extraction K08.409
--- NOTE | 2022-11-10 18:16 | Billing Data ---
Date of Service November 10, 2022 Coding Level of Care Code 39179 INP/OBS DISCH >30 MIN
== END 2022-11-10 18:43 | disposition home or self-care (01) | DRG 391 ==
LOC: ED 15:14 → 2S 19:09 → SUATTDRO 19:09 → 2S 20:57